=== PATIENT | female | born 1955 | race Caucasian/White ===

== ENCOUNTER 2018-08-01 10:30 | Outpatient (REF) | payer BC, SELFPAY | END 2018-08-01 10:50 | LOC: LBN 10:30 | PROVIDERS: PCP Nurse Practitioner Family; Visit Provider Nurse Practitioner Family | DX: N30.90 Cystitis, unspecified without hematuria (principal) | CPT/HCPCS: 87077; 87086; 87186 ==

== ENCOUNTER 2018-08-25 01:29 | Outpatient (CLI) | payer BC, SELFPAY ==
--- NOTE | 2018-08-25 11:00 | DI.MAMMO_ITS ---
SYMPTOM/DIAGNOSIS: SCREENING, Z12.31 MAMMOGRAMS: Mammograms were interpreted according to the usual protocol including computer analysis with CAD system, tomosynthesis and C view imaging. The patient's previous exam from 2006 is no longer available for comparison. The breasts are composed of heterogeneously dense fibroglandular tissue, breast density, Category C. No suspicious masses or suspicious microcalcifications are seen. IMPRESSION: Category 1, negative mammogram. Yearly screening mammography is recommended. [facility] ASSESSMENT OF FINDINGS: Negative. Category 1. Patient will receive a letter notifying them of these results. Bi-RADS category C. The breasts are heterogeneously dense, which may obscure small masses.
== END 2018-08-25 01:49 ==
PROVIDERS: PCP Nurse Practitioner Family; Visit Provider Nurse Practitioner Family
DX: Z12.31 Encounter for screening mammogram for malignant neoplasm of breast (principal)
CPT/HCPCS: 77063; 77067

== ENCOUNTER 2020-06-21 14:58 | Outpatient (CLI) | payer MEDICARE, OTHER, SELFPAY ==
--- NOTE | 2020-06-21 | DI.US_ITS ---
EXAM: US SOFT TISSUE EXTREMITY CLINICAL HISTORY: FOREIGN BODY IN RIGHT INDEX FINGER M79.5. TECHNIQUE: Ultrasound was performed using standard protocol. COMPARISON: No exams were available for comparison FINDINGS: Sonographic assessment utilizing grayscale and color Doppler imaging was performed and targeted to th e area of clinical concern. No foreign bodies are seen sonographically. No focal fluid collection is seen to suggest an abscess. IMPRESSION: No sonographic evidence of a foreign body. DATA REPOSITORY:
== END 2020-06-21 15:18 ==
PROVIDERS: PCP Nurse Practitioner Family; Visit Provider Nurse Practitioner Family
DX: M79.5 Residual foreign body in soft tissue
CPT/HCPCS: 76881

== ENCOUNTER → 2020-07-05 14:52 | Outpatient (BNVA) | payer MEDICARE, OTHER, SELFPAY | PROVIDERS: PCP Nurse Practitioner Family; Referring Provider Nurse Practitioner Family; Visit Provider Surgery | DX: L08.89 Other specified local infections of the skin and subcutaneous tissue (principal); M19.041 Primary osteoarthritis, right hand ==

== ENCOUNTER 2020-07-05 15:28 | Outpatient (CLI) | payer MEDICARE, OTHER, SELFPAY ==
[2020-07-05 15:47] LABS: Abs Immature Grans 0.01 10^3/uL (0.0-0.06); Absolute Basophil Count 0.05 10^3/uL (0.0-0.2); Absolute Eosinophil Count 0.09 10^3/uL (0.0-0.7); Absolute Lymphocyte Count 2.75 10^3/uL (1.2-3.4); Absolute Monocyte Count 0.48 10^3/uL (0.1-0.8); Absolute Neutrophil Count 2.71 10^3/uL (1.2-6.7); Basophils % 0.8; Eosinophils % 1.5; HCT 40.1 % (36.0-46.0); HGB 13.5 g/dL (11.2-15.7); Immature Grans % 0.2; Lymphocytes % 45.2; MCH 29.3 pg (27.0-33.0); MCHC 33.7 % (32.0-36.0); MPV 9.4 fL (8.0-11.0); Monocytes % 7.9; Neutrophils % 44.4; Nucleated RBC 0 %; Platelet Count 297 10^3/uL (130-400); RBC 4.61 10^6/uL (3.93-5.22); RDW 12.7 % (11.7-14.6); RDW-SD 40.1 fL; WBC 6.09 10^3/uL (4.4-10.8)
[2020-07-05 15:48] LABS: ESR 3 mm//hr (0-30)
[2020-07-05 15:58] LABS: C-Reactive Protein 0.13 mg/dL (0.0-0.3)
== END 2020-07-05 15:29 | disposition home or self-care (01) ==
LOC: LBO 15:30
PROVIDERS: PCP Nurse Practitioner Family; Visit Provider Surgery
DX: E03.9 Hypothyroidism, unspecified (principal); M79.644 Pain in right finger(s)
CPT/HCPCS: 36415; 85652; 99202; 99203; 85025; 86140

== ENCOUNTER 2020-07-06 13:17 | Outpatient (CLI) | payer MEDICARE, OTHER, SELFPAY ==
--- NOTE | 2020-07-06 13:00 | DI.RAD_ITS ---
EXAM: XR FINGER RT INDEX CLINICAL HISTORY: f/u. TECHNIQUE: 2D digital imaging was performed. COMPARISON: US US SOFT TISSUE EXTREMITY from 06/21/2020 FINDINGS: There is no evidence of fracture or dislocation. Is no radiopaque foreign body. No osseous lesions nor erosions evident. No radiographic evidence of osteomyelitis IMPRESSION: DATA REPOSITORY: RADIATION DOSE DELIVERED:
== END 2020-07-06 13:18 | disposition home or self-care (01) ==
LOC: DIORS 13:17
PROVIDERS: PCP Nurse Practitioner Family; Referring Provider Surgery; Visit Provider Student in an Organized Health Care Education/Training Program
DX: L08.9 Local infection of the skin and subcutaneous tissue, unspecified (principal); L03.011 Cellulitis of right finger
CPT/HCPCS: 99203; 99213; 73140

== ENCOUNTER 2020-12-20 02:23 | Outpatient (CLI) | payer MEDICARE, OTHER, SELFPAY ==
[2020-12-20 12:44] LABS: Hemoglobin A1C 5.9 % (<5.7)
[2020-12-20 12:56] LABS: Anion Gap 7.9 mmol/L (3-11); BUN 14 mg/dL (7-18); CO2 30.1 mmol/L (21.0-32.0); CREATININE 0.7 mg/dL (0.55-1.02); Calcium 8.8 mg/dL (8.5-10.1); Chloride 104 mmol/L (98-107); Ferritin 114 ng/mL (8-252); Glucose 98 mg/dL (74-106); Potassium 3.8 mmol/L (3.5-5.1); Sodium 142 mmol/L (136-145); TSH 0.42 uIU/mL (0.36-3.74)
[2020-12-20 13:18] LABS: FREE T4 0.79 ng/dL (0.76-1.46)
[2020-12-20 22:16] LABS: T3,Free 3.2 pg/mL (2.8-5.3)
[2020-12-20 22:56] LABS: Thyroglobulin Antibody 267 U/mL (<=60); Thyroperoxidase Antibody >1300 U/mL (<=60)
[2020-12-21 13:13] LABS: Ceruloplasmin 25.3 mg/dL
[2020-12-21 16:10] LABS: Copper, Serum 1.05 mcg/mL (0.75-1.45)
[2020-12-23 17:44] LABS: Apolipoprotein B, Serum 133 mg/dL (48-124); Beta VLDL Cholesterol Not Detected mg/dL (<15); Beta VLDL Triglycerides Not Detected mg/dL (<15); Cholesterol, Total, CDC 251 mg/dL; Chylomicron Cholesterol Not Detected; Chylomicron Triglycerides Not Detected; HDL Cholesterol, CDC 61 mg/dL (>=50); LDL Cholesterol 170 mg/dL; LDL Triglycerides 38 mg/dL (<=50); Lp(a) Cholesterol <5 mg/dL (<5); LpX Not detected; Triglycerides, CDC 100 mg/dL; VLDL Cholesterol 20 mg/dL (<30); VLDL Triglycerides 40 mg/dL (<120)
[2020-12-24 15:19] LABS: T3 (Triiodothyronine) Reverse 14 ng/dL (10-24)
[2021-01-10 12:19] LABS: Zinc Protoporphyrin, B See Comments
== END 2020-12-20 02:24 | disposition home or self-care (01) ==
LOC: LOS 02:23
PROVIDERS: Naturopath; PCP Nurse Practitioner Family; Visit Provider Nurse Practitioner Family
DX: L65.9 Nonscarring hair loss, unspecified; R73.01 Impaired fasting glucose
CPT/HCPCS: 36415; 80048; 80061; 82390; 84202; 86376; 82172; 82525; 82664; 82728; 83036; 84439; 84443; 84481; 84482

== ENCOUNTER 2021-02-16 02:14 | Outpatient (CLI) | payer MEDICARE, OTHER, SELFPAY ==
--- NOTE | 2021-02-16 08:30 | DI.DEXA_ITS ---
Exam(s) XR DEXA BONE DENSITY W/WO WATSON EXAM: XR DEXA BONE DENSITY W/WO WATSON CLINICAL HISTORY: screening for osteoporosis in postmenopausal woman,z78.0 TECHNIQUE: Routine DEXA evaluation of the lumbar spine, hip, or forearm. COMPARISON: No exams were available for comparison FINDINGS: Performed on a Hologic unit. Lateral image: No compression fracture evident. Lumbar Spine total T-score: -1.5 Hip total T-score:-1.2 Independent reading at the level of the femoral neck yields at T-score of -1.8. Forearm total T-score: -3.1 IMPRESSION: Bone mineral density measures in the osteopenia-bordering on osteoporosis range (f forearm). Fractur e risk is moderate high. Note: Any spine fracture indicates 5x risk for subsequent spine fracture and 2x risk for subsequent h ip fracture. World Health Organization criteria for BMD interpretation classify patients: Normal...... T- Score at or above -1.0 Osteopenic... T- Score between -1.0 and -2.5 Osteoporosis... T-Score at or below -2.5
--- NOTE | 2021-02-16 13:25 | DI.MAMMO_ITS ---
Exam(s) MAMMO SCREENING EXAM: MAMMO SCREENING CLINICAL HISTORY: screening,z12.39. TECHNIQUE: Bilateral full field digital CC and MLO mammographic images were obtained with 3D tomosyn thesis and utilizing computer aided detection (CAD). COMPARISON: Prior mammogram performed August 2018, this being the only prior available mammogram for c emile. FINDINGS: There has been no significant change in the appearance and distribution of the fibroglandular tissue Benign-appearing nodular densities in both breasts are unchanged from the prior study There are no new spiculated masses nor malignant appearing microcalcification groups. There is no significant architectural distortion nor skin thickening-retraction. IMPRESSION: No radiographic evidence of malignancy. Stable benign findings. BI-RADS Category 2 - Benign Findings Breast Density - Category B - Scattered areas of fibroglandular density Breast density Category C or D implies that the patient has dense breast tissue. Dense breast tissue can make it harder to find cancer on a mammogram. Dense breast tissue is also associated with an incr eased risk of breast cancer. This information about the result of the mammogram report was provided to the patient to raise their awareness. Use this report when you speak with the patient about their risks for breast cancer, which includes their family history. At that time, you may recommend additional screening tests (Ultrasoun d or MRI) as these tests may add significant information. A negative radiographic report should not delay biopsy if a dominant or clinically suspicious mass is present. Up to ten percent of cancers are not identified on mammography. A negative report may reinforce clinical impression. Adenosis and dense breasts may obscure an underlying neoplasm. False positive reports average 6 to 10%. Patient will receive a letter notifying them of these results.
== END 2021-02-16 02:34 ==
PROVIDERS: PCP Nurse Practitioner Family; Visit Provider Nurse Practitioner Family
DX: Z12.31 Encounter for screening mammogram for malignant neoplasm of breast (principal); M85.88 Other specified disorders of bone density and structure, other site; Z78.0 Asymptomatic menopausal state
CPT/HCPCS: 77063; 77067; 77080

== ENCOUNTER → 2021-03-09 13:28 | Outpatient (BNVA) | payer MEDICARE, OTHER, SELFPAY | PROVIDERS: PCP Nurse Practitioner Family; Referring Provider Nurse Practitioner Family; Visit Provider Physical Therapy Assistant | DX: Z12.11 Encounter for screening for malignant neoplasm of colon (principal) ==

== ENCOUNTER 2021-11-29 03:11 | Outpatient (CLI) | payer MEDICARE, OTHER, SELFPAY ==
[2021-11-29 12:48] LABS: Anion Gap 7.2 mmol/L (3-11); BUN 15 mg/dL (7-18); CO2 29.8 mmol/L (21.0-32.0); CREATININE 0.8 mg/dL (0.55-1.02); Calcium 8.8 mg/dL (8.5-10.1); Chloride 104 mmol/L (98-107); Estimated GFR 81.21 (mL/min/1.73m2); Glucose 97 mg/dL (74-106); Potassium 3.5 mmol/L (3.5-5.1); Sodium 141 mmol/L (136-145); TSH (W/Ref FT4) 0.69 uIU/mL (0.36-3.74)
[2021-11-29 12:53] LABS: Calculated LDL 168 mg/dL (<100); Cholesterol 255 mg/dL (<200); HDL Cholesterol 73 mg/dL (40-60); Triglyceride 72 mg/dL (<150)
[2021-11-29 12:58] LABS: Hemoglobin A1C 5.9 % (<5.7)
== END 2021-11-29 03:12 | disposition home or self-care (01) ==
LOC: LOS 03:11
PROVIDERS: Nurse Practitioner; PCP Nurse Practitioner Family; Visit Provider Nurse Practitioner Family
DX: R73.03 Prediabetes (principal); I10 Essential (primary) hypertension; E78.5 Hyperlipidemia, unspecified
CPT/HCPCS: 36415; 80048; 80061; 83036; 84443

== ENCOUNTER 2022-08-16 16:38 | Outpatient (CLI) | payer MEDICARE, SELFPAY ==
--- NOTE | 2022-08-16 16:30 | DI.RAD_ITS ---
Exam(s) XR KNEE LT 4V AP,LAT,SARA,PAT EXAM: XR KNEE LT 4V AP,LAT,SARA,PAT CLINICAL HISTORY: left knee injury, clipped by dog and fell onto knee,M25.562-pain in lt knee. TECHNIQUE: 2D digital imaging was performed of the left knee. Four images were obtained. Merchant, AP, lateral and PA tunnel views were obtained. COMPARISON: No exams were available for comparison FINDINGS: BONES: No acute fracture is present. No bony destructive lesion is seen. JOINTS: The knee is normally aligned. No joint effusion is seen. SOFT TISSUE: Mild swelling around the knee. IMPRESSION: No acute fracture or dislocation. DATA REPOSITORY: RADIATION DOSE DELIVERED:
--- NOTE | 2022-08-16 17:43 | DI.VRAD_ITS ---
PROCEDURE INFORMATION: Exam: XR Left Knee Exam date and time: 08/16/2022 5:02 PM Age: 67 years old Clinical indication: Injury or trauma; Fall; Swelling (edema); Injury date: Left knee injury, clipped by dog and fell onto knee, m25.562-pain in lt kne TECHNIQUE: Imaging protocol: Radiologic exam of the left knee. Views: 4 or more views. COMPARISON: US SOFT TISSUE EXTREMITY 21/06/2020 14:40 FINDINGS: Bones/joints: No evidence for acute bony injury. No significant joint effusion. Soft tissues: Mild soft tissue swelling of the knee. IMPRESSION: No evidence for acute bony injury. If clinical symptoms persist recommend followup film in 7-10 days. Dictated and Authenticated by: Tatyana Peterson MD. Ordering:CODY Hernadez MD
== END 2022-08-16 16:58 ==
LOC: DI 16:42
PROVIDERS: PCP Nurse Practitioner Family; Visit Provider Nurse Practitioner
DX: M25.562 Pain in left knee (principal); W18.30XA Fall on same level, unspecified, initial encounter
CPT/HCPCS: 73564

== ENCOUNTER → 2022-09-17 08:09 | Outpatient (BNVA) | payer MEDICARE, SELFPAY | PROVIDERS: PCP Nurse Practitioner Family; Referring Provider Nurse Practitioner Family; Visit Provider Student in an Organized Health Care Education/Training Program | DX: S83.282A Other tear of lateral meniscus, current injury, left knee, initial encounter (principal); W19.XXXA Unspecified fall, initial encounter | CPT/HCPCS: 99213 ==

== ENCOUNTER 2022-10-08 01:09 | Outpatient (CLI) | payer MEDICARE, SELFPAY ==
--- NOTE | 2022-10-08 07:00 | DI.MAMMO_ITS ---
Exam(s) MAMMO SCREENING EXAM: MAMMO SCREENING CLINICAL HISTORY: screening, Z12.39. TECHNIQUE: Bilateral full field digital CC and MLO mammographic images were obtained with 3D tomosyn thesis and utilizing computer aided detection (CAD). COMPARISON: Prior mammograms were reviewed. FINDINGS: There has been no significant change in the appearance and distribution of the fibroglandular tissue. Benign-appearing nodules in the right breast consistent intramammary lymph nodes are unchanged There are no new spiculated masses nor malignant appearing microcalcification groups. There is no significant architectural distortion nor skin thickening-retraction. IMPRESSION: No radiographic evidence of malignancy. BI-RADS Category 1 - Negative Breast Density - Category B - Scattered areas of fibroglandular density Breast density Category C or D implies that the patient has dense breast tissue. Dense breast tissue can make it harder to find cancer on a mammogram. Dense breast tissue is also associated with an incr eased risk of breast cancer. This information about the result of the mammogram report was provided to the patient to raise their awareness. Use this report when you speak with the patient about their risks for breast cancer, which includes their family history. At that time, you may recommend additional screening tests (Ultrasoun d or MRI) as these tests may add significant information. A negative radiographic report should not delay biopsy if a dominant or clinically suspicious mass is present. Up to ten percent of cancers are not identified on mammography. A negative report may reinforce clinical impression. Adenosis and dense breasts may obscure an underlying neoplasm. False positive reports average 6 to 10%. Patient will receive a letter notifying them of these results.
== END 2022-10-08 01:29 ==
LOC: DI 01:09
PROVIDERS: PCP Nurse Practitioner Family; Visit Provider Nurse Practitioner Family
DX: Z12.31 Encounter for screening mammogram for malignant neoplasm of breast (principal)
CPT/HCPCS: 77063; 77067

== ENCOUNTER 2022-10-08 01:09 | Outpatient (CLI) | payer MEDICARE, SELFPAY ==
--- NOTE | 2022-10-08 07:00 | DI.MRI_ITS ---
Exam(s) MR LOWER JOINT LT WO EXAM: MR LOWER JOINT LT WO CLINICAL HISTORY: PAIN, ACUTE LATERAL MENISCUS TEAR LT KNEE, S83.282A TECHNIQUE: Multiplanar multisequence MRI of the knee was performed. COMPARISON: CR,XR XR KNEE LT 4V AP,LAT,SARA,PAT from 08/16/2022 FINDINGS: EFFUSION: There is a prominent joint effusion. No obvious loose intra-articular bodies. No Silva [address]. Anteriorly there is subcutaneous soft tissue edema and fluid over the patella and prepatellar li gament. MARROW:There is no evidence of fracture, bone contusion, nor osteochondral defects.. There are no si gnificant osseous lesions. PATELLOFEMORAL COMPARTMENT: The quadriceps tendon is intact. The patellar ligament is intact. There is mild thinning of the retropatellar cartilage over the lateral facet. No distinct osteochond ral defect evident. No abnormal signal in the patella.There is no intraosseous signal to suggest rec ent patellar dislocation. There are no patellar retinacular tears. CRUCIATE LIGAMENTS: The anterior cruciate ligament is intact.The posterior cruciate ligament is intac t. MEDIAL COMPARTMENT/MEDIAL MENISCUS: There are no tears of the medial meniscus evident.. There is mild cartilage thinning over the medial femoral condyle. No focal osteochondral defects. N o subarticular edema in the medial condyle. Tiny marginal osteophyte noted. MEDIAL COLLATERAL LIGAMENT: Intact LATERAL COMPARTMENT/LATERAL MENISCUS: There is no evidence of lateral meniscal tear.There are no maine dral defects, osteochondral defects, subarticular marrow edema, nor osteophytes evident. ILIOTIBIAL BAND: Intact LATERAL COLLATERAL LIGAMENT COMPLEX: The fibular collateral ligament is intact. The biceps femoris t endon is intact.There is signal abnormality at the musculotendinous junction of the popliteus and the re is fluid within the popliteus tendon sheath. However the tendon is not retracted from its attachm ent to the outer aspect of the lateral femoral condyle. IMPRESSION: 1. There are no obvious meniscal tears nor cruciate ligament tears. The MCL appears intact. 2. The popliteus component of the lateral collateral ligament complex exhibits some strain signal at the musculotendinous junction and tenosynovitis of the tendon sheath. However, no high-grade tear of this component of the LCL complex. The other components of the lateral collateral ligament complex including the fibular collateral ligament and biceps femoris tendon appear unremarkable. 3. Mild degenerative cartilage changes evident in the medial compartment and tiny marginal osteophyte off the outer aspect of the medial femoral condyle. There are no osteochondral defects. 4. There is a moderate-large joint effusion out evidence of loose intra-articular bodies. The joint effusion is larger than expected given the relative absence of significant internal derangement. 5. Mild chondromalacia patella. Normal signal in the patella. 6. There is fluid signal in the deep subcutaneous prepatellar soft tissue as well as anterior to the patellar ligament. DATA REPOSITORY:
== END 2022-10-08 01:29 ==
LOC: DI 01:10
PROVIDERS: PCP Nurse Practitioner Family; Visit Provider Student in an Organized Health Care Education/Training Program
DX: M17.12 Unilateral primary osteoarthritis, left knee (principal); M25.462 Effusion, left knee; M22.42 Chondromalacia patellae, left knee
CPT/HCPCS: 73721

== ENCOUNTER → 2022-10-15 10:43 | Outpatient (BNVA) | payer MEDICARE, SELFPAY | PROVIDERS: PCP Nurse Practitioner Family; Referring Provider Nurse Practitioner Family; Visit Provider Student in an Organized Health Care Education/Training Program | DX: M22.42 Chondromalacia patellae, left knee (principal); M17.12 Unilateral primary osteoarthritis, left knee; S86.10 Unspecified injury of other muscle(s) and tendon(s) of posterior muscle group at lower leg level; W54.8XXD Other contact with dog, subsequent encounter | CPT/HCPCS: 99213 ==

== ENCOUNTER 2022-11-29 04:02 | Outpatient (CLI) | payer MEDICARE, SELFPAY ==
[2022-11-29 10:47] LABS: ALT 23 U/L (14-59); AST 15 U/L (15-37); Albumin 4.1 g/dL (3.4-5.0); Alkaline Phosphatase 68 U/L (46-116); Anion Gap 11.3 mmol/L (3-11); BUN 14 mg/dL (7-18); Bilirubin, Total 0.5 mg/dL (0.2-1.0); CO2 26.7 mmol/L (21.0-32.0); CREATININE 0.9 mg/dL (0.55-1.02); Calcium 9.3 mg/dL (8.5-10.1); Calculated LDL 161 mg/dL (<100); Chloride 102 mmol/L (98-107); Cholesterol 248 mg/dL (<200); Estimated GFR 70.07 (mL/min/1.73m2); Glucose 100 mg/dL (74-106); HDL Cholesterol 76 mg/dL (40-60); Potassium 3.7 mmol/L (3.5-5.1); Sodium 140 mmol/L (136-145); TSH (W/Ref FT4) 1.21 uIU/mL (0.36-3.74); Total Protein 7.4 g/dL (6.4-8.2); Triglyceride 56 mg/dL (<150)
[2022-11-29 12:20] LABS: Hemoglobin A1C 5.8 % (<5.7)
[2022-11-29 19:06] LABS: T3,Free 3.6 pg/mL (2.8-5.3)
[2022-11-29 19:19] LABS: T3, Total 132 ng/dL (97-169)
[2022-11-30 10:45] LABS: Hepatitis C Ab w Rflx HCV PCR Negative (Negative)
[2022-12-01 10:18] LABS: Copper, Serum 101 mcg/dL (77-206); Zinc, S 91 mcg/dL (60-106)
[2022-12-02 09:38] LABS: Ceruloplasmin 24.8 mg/dL
== END 2022-11-29 04:03 | disposition home or self-care (01) ==
LOC: LBO 04:03
PROVIDERS: PCP Nurse Practitioner Family; Visit Provider Nurse Practitioner Family
DX: E06.3 Autoimmune thyroiditis (principal); E60 Dietary zinc deficiency; K90.89 Other intestinal malabsorption; Z51.81 Encounter for therapeutic drug level monitoring
CPT/HCPCS: 80048; 80053; 80061; 82390; 82525; 84630; 86803; 83036; 84443; 84480; 84481

== ENCOUNTER 2024-02-20 02:49 | Outpatient (CLI) | payer MEDICARE, SELFPAY ==
--- NOTE | 2024-02-20 11:30 | DI.MAMMO_ITS ---
Exam(s) MAMMO SCREENING EXAM: MAMMO SCREENING CLINICAL HISTORY: screening, Z12.39. TECHNIQUE: Bilateral full field digital CC and MLO mammographic images were obtained with 3D tomosyn thesis and utilizing computer aided detection (CAD). COMPARISON: Prior mammograms were reviewed. FINDINGS: There has been no significant change in the appearance and distribution of the fibroglandular tissue. Few small benign-appearing nodules in the right breast are unchanged from prior mammograms. There are no new spiculated masses nor malignant appearing microcalcification groups. There is no significant architectural distortion nor skin thickening-retraction. IMPRESSION: No radiographic evidence of malignancy. Stable benign-appearing findings BI-RADS Category 1 - Negative Breast Density - Category B - Scattered areas of fibroglandular density Breast density Category C or D implies that the patient has dense breast tissue. Dense breast tissue can make it harder to find cancer on a mammogram. Dense breast tissue is also associated with an incr eased risk of breast cancer. This information about the result of the mammogram report was provided to the patient to raise their awareness. Use this report when you speak with the patient about their risks for breast cancer, which includes their family history. At that time, you may recommend additional screening tests (Ultrasoun d or MRI) as these tests may add significant information. A negative radiographic report should not delay biopsy if a dominant or clinically suspicious mass is present. Up to ten percent of cancers are not identified on mammography. A negative report may reinforce clinical impression. Adenosis and dense breasts may obscure an underlying neoplasm. False positive reports average 6 to 10%. Patient will receive a letter notifying them of these results.
--- NOTE | 2024-02-20 13:56 | DI.DEXA_ITS ---
Exam(s) XR DEXA BONE DENSITY W/WO WATSON EXAM: XR DEXA BONE DENSITY W/WO WATSON CLINICAL HISTORY: asymptomatic postmenopausal state, Z78.0, osteopenia TECHNIQUE: Hologic Horizon C densitometer analysis of left hip, lumbar spine and right forearm. La teral survey image of the thoracic and lumbar spine. COMPARISON: CR XR DEXA BONE DENSITY W/WO WATSON from 02/16/2021 FINDINGS: Lateral view of the thoracic and lumbar spine shows no evidence of compression fractures. Bone mineral density measurements of the lumbar spine correspond to a total T-score of -1.9, in the osteopenic range. This represents a 4.9 percent decrease from 2020. Bone mineral density measurements of the left hip correspond to a total T-score of -1.1. This is no t significantly changed from 2020. the femoral neck T-score is -2.1, in the osteopenic range. Theright forearm bone mineral density measurements correspond to a T-score of the distal 3rd of -3.3 , in the osteoporotic range. This is not significantly changed from 2020.. IMPRESSION: Osteopenia of the spine and hip. Osteoporosis of the forearm.
== END 2024-02-20 03:09 ==
LOC: DI 02:49
PROVIDERS: PCP Nurse Practitioner Family; Visit Provider Nurse Practitioner Family
DX: Z13.820 Encounter for screening for osteoporosis (principal); Z78.0 Asymptomatic menopausal state; M81.0 Age-related osteoporosis without current pathological fracture; Z12.31 Encounter for screening mammogram for malignant neoplasm of breast
CPT/HCPCS: 77063; 77067; 77080

== ENCOUNTER 2024-04-08 04:10 | Outpatient (CLI) | payer MEDICARE, SELFPAY ==
[2024-04-08 10:18] LABS: Hemoglobin A1C 6.1 % (<5.7)
[2024-04-08 10:45] LABS: Ferritin 116 ng/mL (8-252); TSH 1.45 uIU/mL (0.36-3.74)
[2024-04-08 10:51] LABS: Anion Gap 6.6 mmol/L (3-11); BUN 16 mg/dL (7-18); CO2 30.4 mmol/L (21.0-32.0); CREATININE 0.8 mg/dL (0.55-1.02); Calcium 9.3 mg/dL (8.5-10.1); Calculated LDL 95 mg/dL (<100); Chloride 106 mmol/L (98-107); Cholesterol 190 mg/dL (<200); Estimated GFR 80.21 (mL/min/1.73m2); Glucose 100 mg/dL (74-106); HDL Cholesterol 85 mg/dL (40-60); Potassium 3.9 mmol/L (3.5-5.1); Sodium 143 mmol/L (136-145); Triglyceride 54 mg/dL (<150); Vitamin D 25 Total 27.2 ng/mL (30-100)
[2024-04-08 17:31] LABS: T3,Free 3.5 pg/mL (2.8-5.3)
[2024-04-08 18:34] LABS: HIV-1/2 Ag & Ab Screen Negative (Negative)
[2024-04-08 18:38] LABS: HBs Antibody, Quant <3.1 mIU/mL (See Note); Hep B Surface Ab Negative (See Note); Hepatitis B Core Antibody Negative (Negative); Hepatitis B Surface Antigen Negative (Negative)
[2024-04-10 11:55] LABS: Ceruloplasmin 24.2 mg/dL
[2024-04-10 13:59] LABS: Copper, Serum 98 mcg/dL (77-206); Zinc, S 76 mcg/dL (60-106)
[2024-04-14 13:19] LABS: T3 (Triiodothyronine) Reverse 12 ng/dL (10-24)
== END 2024-04-08 04:11 | disposition home or self-care (01) ==
LOC: LBO 04:10
PROVIDERS: PCP Nurse Practitioner Family; Visit Provider Naturopath
DX: R73.03 Prediabetes; Z11.4 Encounter for screening for human immunodeficiency virus [HIV]; Z11.59 Encounter for screening for other viral diseases; M85.80 Other specified disorders of bone density and structure, unspecified site; E06.3 Autoimmune thyroiditis; E78.00 Pure hypercholesterolemia, unspecified; E60 Dietary zinc deficiency
CPT/HCPCS: 36415; 80048; 80061; 82306; 82390; 82525; 84630; 86704; 86706; 87340; 87389; 82728; 83036; 84439; 84443; 84481; 84482